=== PATIENT | female | born 1980 | race Caucasian/White ===

== ENCOUNTER 2021-08-11 11:17 | Emergency (ER) | payer BC ==
[~2021-08-11] VITALS: Ht 160 cm; Wt 65.8 kg
--- NOTE | 2021-08-11 11:33 | NUR ---
TO ER BED 4 FOR MD MONTERO,MONITORED,NAD,AWAITING MD MONTERO
[2021-08-11] MEDS ORDERED: ACETAMINOPHEN 325 MG TABLET PO ONE (12:00)
[2021-08-11] MEDS ORDERED: ACETAMINOPHEN 325 MG TABLET ONE (12:31)
[2021-08-11] MEDS ORDERED: IBUP-1955 PO (13:35)
--- NOTE | 2021-08-11 13:45 | NUR ---
Patient discharged to home in stable condition. Written and verbal after care instructions given. Patient verbalizes understanding of instruction.
[2021-08-11] MEDS ORDERED: KETOROLAC TROMETHAMINE INJ 30 MG/ML VIAL IM ONE (14:00)
[2021-08-11 15:31] VITALS: BP 118/63
== END 2021-08-11 15:32 | disposition home or self-care (01) ==
LOC: ER 11:23 → EDBD 11:23 → ER 15:32
DX: S16.1XXA Strain of muscle, fascia and tendon at neck level, initial encounter (principal); S09.8XXA Other specified injuries of head, initial encounter; M25.552 Pain in left hip; V49.49XA Driver injured in collision with other motor vehicles in traffic accident, initial encounter; Y93.89 Activity, other specified; Y92.413 State road as the place of occurrence of the external cause; Y99.8 Other external cause status
CPT/HCPCS: 70450-TC; 71045-TC; 72125-TC; 72170-TC